=== PATIENT | male | born 1940 | race Caucasian/White ===

== ENCOUNTER 2018-08-15 05:48 | Inpatient (IN) | payer OTHER ==
[2018-08-01 08:42] LABS: HEMATOCRIT 42.6 % (42.0-52.0); HEMOGLOBIN 14.2 gm/dL (14.0-18.0); MCH 30.1 pg (26.0-34.0); MCHC 33.3 g/dL (28.0-37.0); MCV 90.3 fL (80.0-100.0); RBC 4.71 mil/uL (4.50-6.00); RDW 13.8 % (10.5-14.5); WBC 5.2 thou/uL (4.0-11.0)
[2018-08-01 08:53] LABS: CALCIUM 9.9 mg/dL (8.5-10.1); CREATININE 1.3 mg/dL (0.7-1.3); POTASSIUM 4.4 mmol/L (3.5-5.1)
[2018-08-01 08:55] LABS: PROTIME 10.4 Seconds (9.3-11.4); URINE BILIRUBIN NEGATIVE (Negative); URINE BLOOD NEGATIVE (Negative); URINE CLARITY CLEAR; URINE COLOR YELLOW; URINE GLUCOSE-RANDOM* NEGATIVE (Negative); URINE KETONES NEGATIVE (Negative); URINE LEUKOCYTES-REFLEX NEGATIVE (Negative); URINE NITRITE-REFLEX NEGATIVE (Negative); URINE PROTEIN (DIPSTICK) NEGATIVE (Negative); URINE UROBILINOGEN 0.2 E.U./dl (0.2-1.0)
[~2018-08-15] VITALS: Ht 177.8 cm; Wt 86.4 kg
--- NOTE | ~2018-08-15 | EKG ---
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: Maye DASH : 1940 Requested By: Shilo Abernathy Order Number: [id number] MD: Kolton Mendoza Measurements Intervals [place] Rate: 63 P: 14 IL: 215 QRS: -25 QRSD: 97 T: 34 QT: 414 QTc: 424 Interpretive Statements Sinus rhythm Borderline prolonged [place] interval Anterior infarct, old No previous ECG available for comparison Electronically Signed On 08-01-2018 17:07:03 CDT by Kolton Mendoza [email or web address] <ELECTRONICALLY SIGNED> By: Kolton Mendoza MD, [facility] 08/01/18 1707 0832 0832 Kolton Mendoza MD, FACC /EPI
--- NOTE | ~2018-08-15 | O ---
[facility] [address] [place] [address] OPERATIVE REPORT Name: GARTH ROE Room #: 429-P [facility] IN M.R.#: [id number] Admission: 08/15/18 Attend Phys: Shilo Abernathy MD Discharge: Date of : 38 Report #: [id number] THIS REPORT FOR: //name// CC: Sloan Abernathy DATE OF SERVICE: 08/15/2018 PREOPERATIVE DIAGNOSES: 1. Severe right knee osteoarthritis. 2. Retained hardware from previous tibial plateau fracture. POSTOPERATIVE DIAGNOSES: 1. Severe right knee osteoarthritis. 2. Retained hardware from previous tibial plateau fracture. PROCEDURES: 1. Right total knee arthroplasty with Navio robotic assistance. 2. Hardware removal, medial and lateral tibial plate. SURGEON: Shilo Abernathy MD CERTIFIED [employer]ILITY OPERATOR: Christy Landa PA-C INDICATION FOR ASSISTANCE: Throughout the case, extensive retraction and manipulation of the knee and soft tissues was required. This was afforded to me by my tiler's assistant. ANESTHESIA: LMA with an adductor canal block. IMPLANTS: [employer] size 5 Legion cobalt chrome posterior stabilized femur, a size 3 tibia, size 9 highly constrained polyethylene and size 32 patella. TOURNIQUET TIME: 152 minutes with letdown of the tourniquet at 120 minutes for reperfusion of the leg. ESTIMATED BLOOD LOSS: 50 mL. COMPLICATIONS: None. SPECIMENS: None. CONDITION UPON LEAVING THE OPERATING ROOM: Stable. INDICATIONS FOR PROCEDURE: The patient is a 78-year-old gentleman with severe [facility] [place] [address] OPERATIVE REPORT Name: GARTH ROE Room #: 429-P [facility] IN M.R.#: [id number] Admission: 08/15/18 Attend Phys: Shilo Abernathy MD Discharge: Date of : 38 Report #: [id number] right knee osteoarthritis and posttraumatic arthritis. Approximately 30 years or so ago, he sustained a tibial plateau fracture that was treated with medial and lateral locking plates. He has progressed to have [id number] arthritis in his knee and after discussion with him and his family, they elected for right total knee arthroplasty with hardware removal. DESCRIPTION OF PROCEDURE: Risks, benefits, alternatives, complications were discussed in detail with the patient including but not limited to risk of anesthesia; risk of damage to nerves, arteries, blood vessels; risk for infection, bleeding; risk for continued knee pain and need for reoperation. Informed consent was obtained from the patient. The right knee was appropriately marked in the preoperative holding area. Adductor canal block was placed by Anesthesia. IV vancomycin was given for preoperative antibiotics. He was brought to the operating room and placed in the supine position on the operating room table. LMA anesthesia was induced without complication. Tourniquet was placed on the right thigh. Right lower extremity was prepped and draped in normal sterile fashion. Timeout was performed, properly identifying the patient and procedure as well as the instrumentation and implants. All in the operating room were in agreement. Right lower extremity was exsanguinated, tourniquet was inflated. Tourniquet time was 152 minutes with letdown of the tourniquet at 120 minutes for reperfusion. The patient had 2 scars on his knee, one was far lateral from his previous plateau fracture and the other was a curvilinear medial parapatellar scar. Given the location of the tibial plate, it was decided to use 2 incisions for this procedure. The lateral incision was opened just from the level of the joint line distally with a 10 blade through the skin. Dissection was taken down sharply to the fascia. Fascia was incised over the anterior compartment and the plate was then easily identified and dissected out and removed with a screwdriver and osteotome. A longitudinal midline incision incorporating the medial curvilinear incision was made with 10 blade through the skin. There was an approximate 6 cm bridge between the lateral and the distal portion of the medial incision. Dissection was taken down to the fascia and deep flaps were developed medially and laterally. Medial parapatellar arthrotomy was then performed and there were severe osteoarthritic change of the knee. Dissection was taken down medially on the tibia and the medial locking plate was identified, dissected out using a full thickness periosteal sleeve dissection. The plate was removed. His range of motion was 5-60 degrees of the knee and it was decided to proceed with a total knee arthroplasty. Reference pins were placed in the femur and the tibia and the knee was then digitally mapped using the U*tique Robotic System. Given his overall tightness of his knee, tibial resection was made first using U*tique Robot for placement of the tibial resection guide. After this was opened, the knee in order to flex the knee to approximately 80 degrees to make our distal femoral cut. We initially sized the knee as a size 7 based on the robotic sizing. However, after checking flexion and extension gaps, after doing the chamfer cuts and anterior posterior cuts on [address] [address] OPERATIVE REPORT Name: GARTH ROE Room #: 429-P [facility] IN Ericka#: [id number] Admission: 08/15/18 Attend Phys: Shilo Abernathy MD Discharge: Date of : 38 Report #: [id number] the femur, it was decided that he was significantly tight in flexion, so we downsized 2 times to a size 5, at which point we were to able flex the knee to 90 degrees and have good balance medially and laterally. In extension, he was still somewhat loose medially and laterally, but it was felt that this was secondary to the previous dissection performed for the removal of his plates and we felt that this could be made up for with a highly constrained liner. The tibia was sized and found to be a size 3, a size 3 tibial trial was pinned upon and punched. A size 5 femoral trial was placed and the box cut was made. This was then trialed with a size 9 highly constrained polyethylene and the knee was taken through range of motion and found to have good balance, both manually and digitally using the Navio and found to be acceptable. 9 mm was taken off the posterior surface of the patella and a size 32 patellar trial button was placed. Knee was taken through range of motion, found to be stable, found to have good balance and good patellar tracking. After this, trial components were removed. Bony ends were thoroughly irrigated with normal saline. Final size 3 tibia, size 5 Legion cobalt chrome posterior stabilized femur and a size 32 patella were cemented in place using standard cementation techniques. While the cement cured, a periarticular injection consisting of morphine, ropivacaine, epinephrine and Toradol was placed around the knee joint capsule. After the cement cured, the tourniquet was deflated and hemostasis was obtained with Bovie cautery. A final size 9 highly constrained polyethylene was placed. A gram of vancomycin was placed deep in the joint. The fascia was closed with 0 Vicryl. Skin incisions were closed with 2-0 Vicryl, 3-0 Monocryl, Dermabond for the main incision, the lateral incision was closed with 2-0 Vicryl and 3-0 nylon. Soft dressing of BEST dressing, Adaptic, 4 x 4, Webril, Franck wrap were applied. The patient tolerated this procedure well and went to recovery room under care of anesthesia postoperatively. By: [id number] Shilo Abernathy MD /nt
[~2018-08-15 05:48] MED LIST: FISH OIL 1,2001 EAC4 PO; GLUCOSAMINE CH1 EAC7 PO; LIPITOR10 MG PO; PRILOSEC 10MG C10 MG PO
[2018-08-15 07:00] VITALS: BP 146/75
[2018-08-15 20:34] VITALS: BP 135/74
[2018-08-15 21:30] VITALS: BP 114/60
[2018-08-15 22:30] VITALS: BP 105/65
[2018-08-15 23:30] VITALS: BP 112/57
[2018-08-16 00:30] VITALS: BP 122/63
[2018-08-16 04:38] VITALS: BP 104/52
[2018-08-16 06:29] LABS: HEMATOCRIT 34.1 % (42.0-52.0); HEMOGLOBIN 11.4 gm/dL (14.0-18.0); MCH 30.5 pg (26.0-34.0); MCHC 33.4 g/dL (28.0-37.0); MCV 91.3 fL (80.0-100.0); RBC 3.73 mil/uL (4.50-6.00); RDW 13.6 % (10.5-14.5); WBC 11.1 thou/uL (4.0-11.0)
[2018-08-16 08:07] VITALS: BP 121/52
[2018-08-16 16:00] VITALS: BP 126/59
[2018-08-16 20:00] VITALS: BP 114/61
[2018-08-17 04:00] VITALS: BP 121/65
[2018-08-17 06:44] LABS: HEMATOCRIT 29.7 % (42.0-52.0); HEMOGLOBIN 10.3 gm/dL (14.0-18.0); MCH 31.3 pg (26.0-34.0); MCHC 34.6 g/dL (28.0-37.0); MCV 90.6 fL (80.0-100.0); RBC 3.28 mil/uL (4.50-6.00); RDW 13.7 % (10.5-14.5); WBC 7.2 thou/uL (4.0-11.0)
[2018-08-17 08:00] VITALS: BP 120/56
[2018-08-17] MEDS ORDERED: NEURONTIN 300300 M1 PO (12:12)
[2018-08-17] MEDS ORDERED: TRI-BUFFERED A325 M1 PO (12:12)
[2018-08-17 15:28] VITALS: BP 121/65
== END 2018-08-17 16:07 | disposition home or self-care (01) | DRG 470 ==
LOC: 4E 05:48 → TBA 05:48 → PRE 07:56 → 4E 12:57 → ENTRNSPT 08-17 15:54 → EDTRNSPTSTS 08-17 15:56 → 4E 08-17 16:07
PROVIDERS: Orthopaedic Surgery
DX: M17.31 Unilateral post-traumatic osteoarthritis, right knee (principal); K21.9 Gastro-esophageal reflux disease without esophagitis; E78.00 Pure hypercholesterolemia, unspecified; G47.30 Sleep apnea, unspecified; Z98.42 Cataract extraction status, left eye; Z98.41 Cataract extraction status, right eye; Z87.81 Personal history of (healed) traumatic fracture; Z90.79 Acquired absence of other genital organ(s); Z86.73 Personal history of transient ischemic attack (TIA), and cerebral infarction without residual deficits; Z79.899 Other long term (current) drug therapy
CPT/HCPCS: 10783; 50010; 50101; 50415; 50954; 51130; 51225; 51771; 53000; 53078; 53364; 54118; 56527; 56528; 57095; 57103; 57109; 57110; 57113; 57127; 62110; 62900; 64042; 70005